=== PATIENT | male | born 1975 | race Caucasian/White ===

== ENCOUNTER 2016-07-12 07:01 | Emergency (ER) | payer SELFPAY ==
[~2016-07-12] VITALS: Ht 182.9 cm; Wt 103.8 kg
[2016-07-12 07:05] VITALS: BP 137/99; PULSE 92; RESP 16; TEMP 98.1; O2SAT 98
--- NOTE | 2016-07-12 07:16 | PD ---
HPI Chief Complaint: Pain: Acute or Chronic Time Seen by Provider: 07:09 Travel History International Travel<30 days: No Contact w/Intl Traveler<30days: No Traveled to known affect area: No History of Present Illness HPI This is a 40-year-old male who presents to the emergency department with left leg pain, constant, moderate severity that started yesterday evening. He says his pain is mostly in the back thigh. It hurts more when he walks and when he drives. He is doesn't think the leg looks swollen. He denies any injuries. He has not been on any recent long car rides. He has never had pain like this before. PFSH Past Medical History Medical History: Denies Significant Hx Hx Anticoagulant Therapy: No Social History Tobacco Use: No Allergies-Medications (Allergen,Severity, Reaction): Coded Allergies: No Known Allergies (Unverified , 07/12/16) Reported Meds & Prescriptions Reported Meds & Active Scripts Active No Active Prescriptions or Reported Medications Review of Systems Except as stated in HPI: all other systems reviewed are Neg Physical Exam Narrative GENERAL:Well appearing, no acute distress SKIN: Focused skin assessment warm and dry. HEAD: Atraumatic. Normocephalic. EYES: Pupils equal and round. No injection or drainage. ENT: Moist mucous membranes NECK: Trachea midline. CARDIOVASCULAR: Regular rate and rhythm. No murmur appreciated. 2+ left DP pulse with normal capillary refill. RESPIRATORY: Clear to auscultation. Breath sounds equal bilaterally. GASTROINTESTINAL: Abdomen soft, non-tender, nondistended. MUSCULOSKELETAL: Some pain in the posterior thigh muscles with flexion at the left knee NEUROLOGICAL: Awake and alert. No obvious cranial nerve deficits. Moving all extremities. PSYCHIATRIC: Appropriate mood and affect; insight and judgment normal. Data Data Last Documented VS Vital Signs Date Time Temp Pulse Resp B/P Pulse Ox O2 Delivery O2 Flow Rate FiO2 07/12/16 07:36 16 07/12/16 07:05 98.1 92 137/99 98 Orders Us Leg Venous Doppler (07/12/16 ) [facility] Medical Decision Making Medical Screen Exam Complete: Yes Emergency Medical Condition: Yes Interpretation(s) Afebrile, mild tachycardia, mild hypertension Last 24 hours Impressions Lower Extremity Ultrasound 07/12/16 0000 Signed Impressions: Service Date/Time: Tuesday, July 12, 2016 07:54 - CONCLUSION: No DVT in left leg. Aurelio F. Tocci, MD Differential Diagnosis DVT, Ashford's cyst, muscle sprain Narrative Course This is a 40-year-old male who presents to the emergency department having pain in his left leg. He has a normal neurovascular exam. Ultrasound was obtained which was negative for DVT. I suspect the patient has a muscle strain. He was advised ice, rest and elevate the leg and take anti-inflammatories. I think patient is safe for discharge. Diagnosis Primary Impression: Muscle strain Patient Instructions: General Instructions Additional Instructions: If you develop numbness, weakness, severe pain, or increasing swelling of her leg return to the emergency department. Rest, ice and elevate your leg and take naproxen as needed for pain. Med/Other Pt SpecificInfo: Prescription(s) given Scripts Naproxen 500 Mg Ens511 Mg PO BID PRN (PAIN SCALE 4 TO 10) #20 TAB Prov:Jessica Leung MD 07/12/16 Disposition: 01 DISCHARGE HOME Condition: Stable Jessica Leung MD July 12, 2016 07:16
--- NOTE | 2016-07-12 08:12 | RADHPO ---
EXAM DATE/TIME: 07/12/2016 07:54 [facility] COMPARISON: No previous studies available for comparison. INDICATIONS : Left leg pain. MEDICAL HISTORY : Left leg pain. SURGICAL HISTORY : None. ENCOUNTER: Initial ACUITY: 1 day PAIN SCORE: 5/10 LOCATION: Left leg. TECHNIQUE: Venous ultrasound of the leg was performed from the inguinal ligament to the proximal calf. Real-luis manuel e, color Doppler and spectral tracing, compression and augmentation techniques were used. FINDINGS: There is normal compressibility of the deep venous system from the inguinal region to the proximal ca lf. No echogenic clot is seen in the lumen of the common femoral, femoral, popliteal, and posterior tibial veins. There is a normal response of the venous system to proximal and distal augmentation an d respiration. CONCLUSION: No DVT in left leg. Aurelio Chatman MD on July 12, 2016 at 8:11 Board Certified Radiologist. This report was verified electronically.
[2016-07-12 08:21] VITALS: BP 148/83; PULSE 67; RESP 16; O2SAT 100
[2016-07-12] MEDS ORDERED: NAPR500T PO (08:21)
[2016-07-12] MEDS ORDERED: KETOROLAC TROMETHAMINE 60 MG/2 ML (IM) VIAL IM ONE (08:30)
== END 2016-07-12 08:42 | disposition home or self-care (01) ==
LOC: PHED 07:01
DX: S76.912A Strain of unspecified muscles, fascia and tendons at thigh level, left thigh, initial encounter (principal); X58.XXXA Exposure to other specified factors, initial encounter
CPT/HCPCS: 93971; 96372; 99285; J1885

== ENCOUNTER 2017-03-10 16:39 | Emergency (ER) | payer OTHER ==
[~2017-03-10] VITALS: Ht 182.9 cm; Wt 102.0 kg
[~2017-03-10 16:39] MED LIST: NAPR500T2 PO
[2017-03-10 16:45] VITALS: BP 147/97; PULSE 120; RESP 16; TEMP 98; O2SAT 98
[2017-03-10] MEDS ORDERED: LIDO1PAD52 TOPICAL ×2 (17:09→17:41)
[2017-03-10] MEDS ORDERED: ACYC800T PO ×2 (17:09→17:41)
--- NOTE | 2017-03-10 17:11 | PD ---
HPI Chief Complaint: Skin Problem Time Seen by Provider: 16:59 Travel History International Travel<30 days: No Contact w/Intl Traveler<30days: No Traveled to known affect area: No History of Present Illness HPI 41-year-old male here with 2 separate issues. He reports that for the past 5 days he has had a rash on the right side of his forehead and scalp. Associated burning sensation, constant, worse with palpation. Denies any rash on the left side of his face. Denies any pain in the right eye or nose. In addition the patient is having pain in his left lateral rib cage. He reports that he was in [place] 5 days ago when he slipped and fell, falling on the ground on his left side. Since then he has had some pain in the lateral left rib cage, aching, worse with deep inspiration. Initially had slight dyspnea but this resolved. He denies any abdominal pain, neck or back pain. No other complaints. PFSH Past Medical History Medical History: Denies Significant Hx Hx Anticoagulant Therapy: No Diminished Hearing: No Tetanus Vaccination: > 5 Years Influenza Vaccination: No Past Surgical History Surgical History: No Previous Surgery Social History Alcohol Use: Yes (occas beer) Tobacco Use: No Substance Use: No Allergies-Medications (Allergen,Severity, Reaction): Coded Allergies: No Known Allergies (Verified Adverse Reaction, Unknown, 03/10/17) Reported Meds & Prescriptions Reported Meds & Active Scripts Active Lidocaine Patch 12 HR (Lidocaine) 5 % Patch 1 Patch TOPICAL DAILY PRN Remove patch after 12 hours Acyclovir 800 Mg Tab 800 Mg PO 5 TIMES A DAY 7 Days Review of Systems Except as stated in HPI: all other systems reviewed are Neg Physical Exam Narrative GENERAL: Well-nourished male in no acute distress SKIN: Warm and dry. Vesicular rash noted to the right side of face V1 trigeminal nerve distribution. Negative Malone sign. No vesicles on the eyelids. HEAD: Atraumatic. Normocephalic. EYES: Pupils equal and round reactive to light extraocular muscles are intact.. No scleral icterus. No injection or drainage. ENT: No nasal bleeding or discharge. Mucous membranes pink and moist. NECK: Trachea midline. No JVD. CARDIOVASCULAR: Regular rate and rhythm. No murmur appreciated. RESPIRATORY: No accessory muscle use. Clear to auscultation. Breath sounds equal bilaterally. GASTROINTESTINAL: Abdomen soft, non-tender, nondistended. Hepatic and splenic margins not palpable. MUSCULOSKELETAL: No obvious deformities. Tender to palpation anterior left lower rib cage with no bruising or soft tissue swelling. No crepitus. NEUROLOGICAL: Awake and alert. No obvious cranial nerve deficits. Motor grossly within normal limits. Normal speech. Data Data Last Documented VS Vital Signs Date Time Temp Pulse Resp B/P (MAP) Pulse Ox O2 Delivery O2 Flow Rate FiO2 03/10/17 17:32 121 18 96 Room Air 03/10/17 16:45 98.0 147/97 (114) Orders Orders Chest, Single Ap (03/10/17 ) Ed Discharge Order (03/10/17 17:42) [facility] Medical Decision Making Medical Screen Exam Complete: Yes Emergency Medical Condition: Yes Medical Record Reviewed: Yes Differential Diagnosis Rib contusion, fracture, pneumothorax, hemothorax, shingles Narrative Course The patient has shingles of the right V1 trigeminal distribution, negative Malone sign, no evidence of ocular involvement. He also has left-sided rib cage pain from a recent fall. His abdomen is soft and nontender. His lungs are clear to auscultation. Chest x-ray was performed revealing no acute abnormality. The patient is being discharged with Lidoderm and acyclovir. Discussed signs and symptoms that would warrant returning to the emergency room. Diagnosis Primary Impression: Rib contusion Additional Impression: Shingles Additional Instructions: Medication as prescribed. Take Tylenol or Motrin for pain. Return for any acutely or worsening symptoms. Med/Other Pt SpecificInfo: Prescription(s) given Scripts Lidocaine Patch 12 HR (Lidocaine Patch 12 HR) 5 % Patch 1 PATCH TOPICAL DAILY Y for PAIN, #1 BOX 1 Refill Remove patch after 12 hours Prov: Flakito Sears MD 03/10/17 Acyclovir (Acyclovir) 800 Mg Tab 800 MG PO 5 TIMES A DAY for Mgmt Viral Infection for 7 Days, TAB 0 Refills Prov: Flakito Sears MD 03/10/17 Disposition: 01 DISCHARGE HOME Condition: Stable Amish Blackmon Mar 10, 2017 17:11
--- NOTE | 2017-03-10 17:30 | RADRPT ---
EXAM DATE/TIME: 03/10/2017 17:12 [facility] COMPARISON: No previous studies available for comparison. INDICATIONS : Left anterior, inferior rib pain post slip and fall on ice. MEDICAL HISTORY : None. SURGICAL HISTORY : None. ENCOUNTER: Initial ACUITY: 1 week PAIN SCORE: 5/10 LOCATION: Left chest FINDINGS: A single view of the chest demonstrates the lungs to be symmetrically aerated without evidence of mas s, infiltrate or effusion. The cardiomediastinal contours are unremarkable. Osseous structures are intact. CONCLUSION: 1. No acute cardiopulmonary findings. Flakito Burgos MD on March 10, 2017 at 17:27 Board Certified Radiologist. This report was verified electronically.
[2017-03-10 17:32] VITALS: PULSE 121; RESP 18; O2SAT 96
== END 2017-03-10 17:56 | disposition home or self-care (01) ==
LOC: PHEFT 16:39
DX: S20.219A Contusion of unspecified front wall of thorax, initial encounter (principal); B02.9 Zoster without complications; R06.00 Dyspnea, unspecified; W01.10XA Fall on same level from slipping, tripping and stumbling with subsequent striking against unspecified object, initial encounter
CPT/HCPCS: 71045; 99284